=== PATIENT | female | born 1950 | race Caucasian/White ===

== ENCOUNTER 2024-12-19 12:23 | Outpatient (CLI) | payer OTHER, SELFPAY ==
--- OUTSIDE RECORDS SUMMARY | 2024-12-12 14:40 | XMS_ITS | Encounter Summary ---
Author Organization Healthcare Address [address] [place] [address] Care Team Providers Care Cath Lab Nurse Name Role Phone Hiram Love MD Primary Care Provider [phone] Reason for Referral * Consultation (Routine) - Authorized Specialty Diagnoses / Procedures Referred By Contac t Referred To Contact Diagnoses ANCA-associated vasculitis Ricki Adams MD [address] [place] [address] Phone: tel: fax: Referral ID Status Reason Start Date Expiration Date V isits Requested Visits Authorized [id number] Authorized 12/12/2024 06/13/2026 1 1 Encounter Details Date Type Department Care Team (Late st Contact Info) Description 12/12/2024 2:40 PM EST Office Visit [facility] Nephrology, Bone & Mineral Metabolism [address] [facility] [address] [facility] [address] [facility], [address] [place] [address] Ricki Adams MD [address] [place] [id number] ANCA-associated vasculitis (Primary Dx); CKD stage 3b, GFR 30-44 ml/min (CMS/HCC); Vasculitis (CMS/HCC); Immunosuppression due to drug therapy; Long-term use of high-risk medication; Anemia of renal disease Social History Tobacco Use Types Packs/Day Years Used Date Smoking Tobacco: Never Passive Smoke Exposure: Never Smokeless Tobacco: Never Alcohol Use Standard Drinks/Week Comments Never 0 (1 standard drink = 0.6 oz pur e alcohol) Humiliation, Afraid, Rape, and Kick questionnair e Answer Date Recorded Within the last year, have y ou been afraid of your partner or ex-partner? No 04/22/2024 Within the last year, have y ou been humiliated or emotionally abused in other ways by your partner or ex-partner? No Within the last year, have y ou been kicked, hit, slapped, or otherwise physically hurt by your partner or ex-partner? No 04/22/2024 Within the last year, have y ou been raped or forced to have any kind of sexual activity by your partner or ex-partner? No 04/22/2024 Social Connection and Isolation Panel Answer Date Recorded Frequency of Communication with Friends and Fami ly Not on file 04/22/2024 Frequency of Social Gatherings with Friends and Family Not on file 04/22/2024 Attends Mosque Services Not on file 04/22 Active Member of Clubs or Organizations Not on f ile 04/22/2024 Attends Club or Organization Meetings Not on lucio e 04/22/2024 Are you , , di vorced, , never , or living with a partner? 04/22/2024 Overall Financial Resource Strain (CARDIA) Answe r Date Recorded How hard is it for you to pa y for the very basics like food, housing, medical care, and heating? Not very hard 04/22/2024 PHQ-2 Answer Date Recorded Patient Health Questionnaire-2 Score 0 08/07/2024 Hunger Vital Sign Answer Date Recorded Within the past 12 months, y ou worried that your food would run out before you got the money to buy more. Never true 04/23/19 25 Within the past 12 months, t he food you bought just didn't last and you didn't have money to get more. Never true 04/22/2024 PRAPARE - Transportation Answer Date Re corded In the past 12 months, has l ack of transportation kept you from medical appointments or from getting medications? No 04/06 In the past 12 months, has l ack of transportation kept you from meetings, work, or from getting things needed for daily living? No 04/22/2024 PHQ-9 Answer Date Recorded Patient Health Questionnaire-9 Score 3 06/27/2024 Housing Stability Vital Sign Answer Jacob e Recorded In the last 12 months, was t here a time when you were not able to pay the mortgage or rent on time? No 04/22/2024 In the past 12 months, how m any times have you moved where you were living? 0 04/22/2024 At any time in the past 12 m [facility], were you homeless or living in a long term (including now)? No 04/22/2024 AUDIT-C Answer Date Recorded Q1: How often do you have a drink containing alcohol? Never 08/07/2024 Q2: How many drinks containi ng alcohol do you have on a typical day when you are drinking? Patient does not drink Q3: How often do you have si x or more drinks on one occasion? Never 08/07/2024 Utilities Answer Date Recorded In the past 12 months has th e electric, gas, oil, or water company threatened to shut off services in your home? No 04/22/2024 Comments Unknown Sex and Gender Information Value Date Recorded Sex Assigned at Not on file Legal Sex Female 6:34 PM EDT Gender Identity Not on file Sexual Orientation Not on file documented as of this encounter Last Filed Vital Signs Vital Sign Reading Time Taken Comments Blood Pressure 176/95 12/12/2024 3:04 PM EST Pulse 77 12/12/2024 3:04 PM EST Temperature 36.7 C (98 F) 12/12/2024 3:04 PM EST Respiratory Rate - - Oxygen Saturation 99% 12/12/2024 3:04 PM EST Inhaled Oxygen Concentration - - Weight 51.5 kg (113 lb 8.6 oz) 12/12/2024 3:04 P M EST Height 149.9 cm (4' 11 ) 12/12/2024 3:04 PM EST Body Mass Index 22.93 12/12/2024 3:04 PM EST documented in this encounter Miscellaneous Notes * Progress Notes - Ricki Adams MD - 12/12/2024 2:40 PM EST Nephrology Patient: Alyse Swift Chief complain / Reason for visit : Follow-up for kidney dysfunction. HPI: 74 y.o. female with history of ANCA vasculitis Patient was admitted to from 04/19/24 for hemoptysis and PAUL peak creatinine 5.94 on 04/19. Found to have UPCR 1.9 and 1 gram of protein in 24 hour urine, she was C-ANCA >1:1280+, PR3 1007. Rheumatology and Nephrology decided on Rituxivas protocol Cyclophosphamide x 2 + Rituximab 375 mg/m^2 x 4for induction. 04/25 -- 1st Cyclophosphamide + 1st dose of Rituximab 05/02 -- 2nd Rituximab 05/09 -- 2nd Cyclophosphamide + 3rd Rituximab 05/29 -- 4th Rituximab Today: No infections. Having Hair loss since starting Avacopan, otherwise has returned to work and feels great. BP better controlled at home 132/82, 123/74, 146/84, 156/79, 120/71 ROS: ROS was obtained in 14 points and is negative except otherwise as noted in the HPI. History: Past Medical History[1] Allergies[2] Medications: Home Medications: Current Medications[3] Physical Exam: Visit Vitals OB Status Unknown Smoking Status Never Gen: Awake, alert, NAD CV: Audible S1, S2, No thrills appreciated Pulm: Reduced breath sounds, Normal respiratory effort Abd: Soft, non-tender, No organomegaly appreciated Extremities: Edema, no digital clubbing Skin: No rashes noted on observed skin, warm to touch Neuro: Awake and alert. Non focal. Laboratory: Creatinine, Plasma (mg/dL) Date/Time Value 09/26/2024 1304 1.68 (H) 08/14/2024 1305 1.81 (H) 07/18/2024 1528 1.67 (H) eGFRcr (mL/min/1.73m*2) Date/Time Value 09/26/2024 1304 31.8 08/14/2024 1305 29.2 07/18/2024 1528 32.2 BUN, Plasma (mg/dL) Date/Time Value 09/26/2024 1304 19 08/14/2024 1305 20 07/18/2024 1528 30 (H) Albumin, Plasma (g/dL) Date/Time Value 09/26/2024 1304 3.8 08/14/2024 1305 3.7 07/18/2024 1528 3.8 Potassium, Plasma (mmol/L) Date/Time Value 09/26/2024 1304 4.6 08/14/2024 1305 4.6 07/18/2024 1528 4.3 CO2, Plasma (mmol/L) Date/Time Value 09/26/2024 1304 25 08/14/2024 1305 26 07/18/2024 1528 28 Sodium, Plasma (mmol/L) Date/Time Value 09/26/2024 1304 141 08/14/2024 1305 143 Total Calcium, Plasma (mg/dL) Date/Time Value 09/26/2024 1304 9.0 08/14/2024 1305 8.5 (L) 07/18/2024 1528 8.4 (L) Ionized Calcium, Serum (mg/dL) Date/Time Value 05/06/2024 0413 4.7 04/19/2024 2309 4.5 (L) Phosphorus, Plasma (mg/dL) Date/Time Value 09/26/2024 1304 4.5 08/14/2024 1305 4.2 07/18/2024 1528 4.3 Magnesium, Plasma (mg/dL) Date/Time Value 06/10/2024 1109 1.9 06/08/2024 0426 2.5 (H) 06/07/2024 0339 1.7 (L) WBC Count (10*3/uL) Date/Time Value 09/26/2024 1304 6.79 08/14/2024 1305 5.71 07/18/2024 1528 13.55 (H) HGB (g/dL) Date/Time Value 09/26/2024 1304 10.4 (L) 08/14/2024 1305 9.0 (L) 07/18/2024 1528 8.8 (L) Platelet Count (10*3/uL) Date/Time Value 09/26/2024 1304 331 08/14/2024 1305 263 07/18/2024 1528 275 Vitamin D 25 Hydroxy (ng/mL) Date/Time Value 09/26/2024 1304 60.5 07/18/2024 1528 44.6 PTH Intact Total (pg/mL) Date/Time Value 09/26/2024 1304 90 (H) 07/18/2024 1551 235 (H) 05/06/2024 0413 185 (H) Protein/Creatinine Ratio (mg/mg Creat) Date/Time Value 09/26/2024 1321 1.2 08/14/2024 1319 1.8 07/18/2024 1546 1.6 RBC, Urine (/HPF) Date/Time Value 08/14/2024 1319 16 - 30 (A) 07/18/2024 1546 4 - 10 (A) 04/19/2024 2317 >50 (A) WBC, Urine (/HPF) Date/Time Value 08/14/2024 1319 0 - 5 07/18/2024 1546 0 - 5 04/19/2024 2317 6 - 10 (A) Transferrin Saturation (%) Date/Time Value 06/27/2024 0927 10 (L) 05/23/2024 0453 30 Impression & Plan: 74 y.o. female with ANCA vasculitis presented in April 2024 with hemoptysis + PAUL peak cr 5.9. No kidney biopsy; serolgyy at diagnosis >1:1280 C-ANCA, >1000 Pr3 Treated with Rituxivas induction rituximab 375mg/m^2 x 4 doses + Cyclophosphamide x 2 doses + Glucocorticoids. 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 # Renal function, Acid-base and volume status reviewed # Notes from other services reviewed # Maintain optimum hydration. Avoid dehydration. # Avoid all the potential nephrotoxins, NSAID's. # Status of kidney disease is not at goal # Plan of care: Medication changes per orders. # Monitoring for drug toxicity: Hyperkalemia # Renally dose medications for the patients eGFR < 45 RTC : 2-3 months I confirm that this patient's longitudinal complex and multifaceted active and chronic health related conditions requires ongoing care by me or my other team members are addressed. I have personally managed this patients immunosuppression which includes Rituximab infusions and Avacopan. Close monitoring for side effects in particular infections and leukopenia. Reviewed CBC and WBC is normal. Willcontinue to need close monitoring. ENCOUNTER TIMING: I personally spent a total of 40 minutes on this encounter. This time includes face to face with patient, counseling and discussion, lab/result interpretation,medication review, coordination of follow-up care with new lab orders, document review and documentation. [1] Past Medical History: Diagnosis Date PAUL (acute kidney injury) ([facility]) 07/18/24 Vascular abnormality of conjunctiva [2] No Known Allergies [3] Current Outpatient Medications: atorvastatin (Lipitor) 40 MG tablet, Take 1 tablet by mouth nightly., Disp: , Rfl: Avacopan (Tavneos) 10 MG capsule, Take 3 capsules by mouth 2 times a day., Disp: 540 capsule, Rfl: 3 Calcium Carbonate-Vit D-Min (Caltrate Bone Health Advanced) 600-800 MG-UNIT tablet, Take 600-800 mg/day by mouth daily. Take I tablet by mouth daily., Disp: 30 tablet, Rfl: 3 carvedilol (Coreg) 12.5 MG tablet, Take 1.5 tablets by mouth 2 times a day., Disp: 270 tablet, Rfl:3 cholecalciferol (D3-5) 5,000 Units tablet, Take 0.5 tablets by mouth daily., Disp: 90 tablet, Rfl: 1 cyanocobalamin 2000 MCG tablet, Take 1 tablet by mouth daily., Disp: , Rfl: ferrous sulfate 325 (65 Fe) MG EC tablet, Take 1 tablet by mouth daily with breakfast. Do not crush, chew, or split., Disp: , Rfl: mirtazapine (Remeron) 15 MG tablet, Take 1 tablet by mouth nightly., Disp: 30 tablet, Rfl: 0 torsemide (Demadex) 20 MG tablet, Take 1 tablet by mouth daily as needed (for fluid gain)., Disp: ,Rfl: documented in this encounter Plan of Treatment Upcoming Encounters Date Type Department Care Team (Late st Contact Info) Description 03/12/2025 9:00 AM EST Office Visit [facility] Medicine Specialties [address], [address] [place] [address] Jesús Rowland, MB [address] [place] [address] 03/13/2025 1:40 PM EST Office Visit [facility] Nephrology, Bone & Mineral Metabolism [address] [facility], [address] [place] [address] Miguel Han MD [address] [address] [facility] [address] [facility] [address] [place] [address] Scheduled Orders Name Type Priority Associated Diagnoses Orde r Schedule Renal Function Panel, Plasma Lab Routine ANCA-associated vasculitis Expected: 12/12/2024 (Approximate), Expires: 06/15/2026 CBC W/O Differential Lab Routine ANCA-associated vasculitis CKD stage 3b, GFR 30-44 ml/min (CMS/HCC) Expected: 03/12/2025 (Approximate), Expires: 06/15/2026 Urinalysis with reflex microscopic (Culture NOT Included) Lab Routine ANCA-associated vasculitis CKD stage 3b, GFR 30-44 ml/min (CMS/HCC) Expected: 03/12/2025 (Approximate), Expires: 06/15/2026 Vitamin D 25 Hydroxy Lab Routine ANCA-associated vasculitis CKD stage 3b, GFR 30-44 ml/min (CMS/HCC) Expected: 03/12/2025 (Approximate), Expires: 06/15/2026 PTH Intact Total Lab Routine ANCA-associated vasculitis CKD stage 3b, GFR 30-44 ml/min (CMS/HCC) Expected: 03/12/2025 (Approximate), Expires: 06/15/2026 Albumin-creatinine ratio, urine, random Lab Routine ANCA-associated vasculitis CKD stage 3b, GFR 30-44 ml/min ([facility]/HCC) Expected: 03/12/2025 (Approximate), Expires: 06/15/2026 Protein, Random, Urine with Creatinine Lab Routine ANCA-associated vasculitis CKD stage 3b, GFR 30-44 ml/min (CMS/HCC) Expected: 03/12/2025 (Approximate), Expires: 06/15/2026 Renal Function Panel, Plasma Lab Routine ANCA-associated vasculitis CKD stage 3b, GFR 30-44 ml/min (CMS/HCC) Expected: 03/12/2025 (Approximate), Expires: 06/15/2026 Scheduled Referrals Name Type Priority Associated Diagnoses Order Schedule Follow Up Nephrology Outpatient Referral Routine ANCA-associated vasculitis Expected: 03/14/2025 (Approximate), Expires: 06/11/2026 documented as of this encounter Visit Diagnoses Diagnosis ANCA-associated vasculitis- Primary Other specified disorders of arteries and arterioles CKD stage 3b, GFR 30-44 ml/min (CMS/HCC) Vasculitis (CMS/[facility]) Unspecified arteritis Immunosuppression due to drug therapy Long-term use of high-risk medication Anemia of renal disease Anemia in chronic kidney disease documented in this encounter Additional Health Concerns Assessment Noted Time PHQ-9 Depression Total Score: 3 06/28/19 8:16 AM EDT A fall risk assessment has been complete d for the patient 12/12/2024 3:17 PM EST A Body Mass Index follow-up plan has been documented for the patient 12/13/2024 10:05 AM EST documented as of this encounter Care Teams Cath Lab Nurse Relationship Specialty Start Date End Date Hiram Love MD [address] [place] [address] PCP - General 04/19/24 documented as of this encounter
--- OUTSIDE RECORDS SUMMARY | 2024-12-19 12:29 | XMS_ITS | Encounter Summary ---
Author Organization Healthcare Address [address] [place] [address] Care Team Providers Care Broach Trouble Shooter Name Role Phone Hiram Love MD Primary Care Provider [phone] Encounter Details Date Type Department Care Team (Late st Contact Info) Description 04/29/2024 Lab Requisition [facility] [address] [place] [address] Luke Lechuga MD [address] [facility] [address] [place] [address] Encounter for general adult medical examination without abnormal findings Social History Tobacco Use Types Packs/Day Years Used Date Smoking Tobacco: Never Assessed Humiliation, Afraid, Rape, and Kick questionnair e [...] and Family Not on file 04/22/2024 Attends Denominational Services Not on file 04/22 Active Member [...] Date Recorded Patient Health Questionnaire-2 Score 0 04/22/2024 Hunger Vital Sign Answer Date Recorded Within [...] Answer Date Recorded Patient Health Questionnaire-9 Score 2 04/22/2024 Housing Stability Vital Sign Answer Jacob e Recorded In the last 12 months, was t here a time when you were not able to pay the mortgage or rent on time? No 04/22/2024 In the past 12 months, how m any times have you moved where you were living? 0 04/22/2024 At any time in the past 12 m [facility], were you homeless or living in a custodial (including now)? No 04/22/2024 Utilities Answer Date Recorded In the past [...] on file documented as of this encounter Functional Status * Calculated C-SSRS Risk Score (Lifetime/Recent) Answer Date of Assessment Author No Risk Indicated 05/02/2024 8:00 AM EDT Sera Kelly * Question Answer Date of Assessment Author 1. Wish to be (Past 1 Month) No 025 8:00 AM EDT Sera Kelly 2. Non-Specific Active Suici don Thoughts (Past 1 Month) No 05/02/2024 8:00 AM EDT Penny Kelly sa 6. Suicidal Behavior (Lifetime) No 8:00 AM EDT Sera Kelly documented as of this encounter Plan of Treatment Upcoming Encounters Date Type Department Care Team (Late st Contact Info) Description 03/12/2025 9:00 AM EST Office Visit [facility] Medicine Specialties [address] [place] [address] Jesús Rowland, LINDSAY [address] [place] [phone] 03/13/2025 1:40 PM EST Office Visit [facility] Nephrology, Bone & Mineral Metabolism [address] [facility], [address] [place] [address] Miguel Han MD [address] [place] [address] documented as of this encounter Procedures Procedure Name Priority Date/Time Associated Diagnosis Comments MULTI DRUG RESISTANCE TEST Routine 04/29/2024 8:20 AM EDT Encounter for general adult medical examination without abnormal findings documented in this encounter Results * Multi Drug Resistance Test (04/29/2024 8:20 AM EDT) Culture No growth at day 1 04/30/2024 10:54 AM EDT [facility] Swab (Nares and Brii Rectal) 04/29/2024 8:20 AM EDT 04/29/2024 1:02 PM EDT us Luke Lechuga MD LAB MICROBIOLOGY - GEN ERAL ORDERABLES Final Result [facility] [address] [place] [address] documented in this encounter Visit Diagnoses Diagnosis Encounter for general adult medical examination without abnormal findings documented in this encounter Additional Health Concerns Infection Onset Date Last Indicated Resolved Time Tuberculosis Rule-Out Comment:Per Kavon Mendoza APRN, active TB has been ruled out for this patient. 04/25/2024 04/25/2024 04/30/2024 9:40 AM E DT Assessment Noted Time PHQ-9 Depression Total Score: 2 04/23/19 6:00 PM EDT A Body Mass Index follow-up plan has been documented for the patient 06/10/2024 1:56 PM EDT documented as of this encounter Care Teams Broach Trouble Shooter Relationship Specialty Start Date End Date Hiram Love MD [address] [place] [address] PCP - General 04/19/24 documented as of this encounter
--- OUTSIDE RECORDS SUMMARY | 2024-12-19 12:29 | XMS_ITS | Clinical Summary ---
Author Organization [facility] Address [address] [place] [address] Care Team Providers Care Class A Lineman Name Role Phone Hiram Love MD Primary Care Provider [phone] Allergies No known active allergies Medications atorvastatin (Lipitor) 40 MG tablet Take 1 tablet by mouth nightly. 06/08/19 25 Active mirtazapine (Remeron) 15 MG tablet Take 1 tablet by mouth nightly. 30 tablet 06/08/19 25 Active Additional Information Patient not taking.Reported on 12/12/2024 cholecalciferol (D3-5) 5,000 Units tabletIndications:Bila teral lower extremity edema,Anemia in stage 3a chronic kidney disease,Vasculitis (CMS/HCC) Take 0.5 tablets by mouth daily. 90 tablet 1 06/28/19 25 Active Calcium Carbonate-Vit D-Min (Caltrate Bone Health Advanced) 600-800 MG-UNIT tablet Take 600-800 mg/day by mouth daily. Take I tablet by mouth daily. 30 tablet 3 06/29/19 25 Active torsemide (Demadex) 20 MG tabletIndications:Vasc ulitis (CMS/HCC),PAUL (acute kidney injury),Chronic kidney disease, stage IV (severe) (CMS/HCC),Immunosuppre ssion due to drug therapy,Anemia of renal disease,Secondary hyperparathyroidism of renal origin (CMS/HCC),Long-term use of high-risk medication,Bilateral lower extremity edema Take 1 tablet by mouth daily as needed (for fluid gain). 07/19/19 25 Active cyanocobalamin 2000 MCG tablet Take 1 tablet by mouth daily. Active ferrous sulfate 325 (65 Fe) MG EC tablet Take 1 tablet by mouth daily with breakfast. Do not crush, chew, or split. Active Avacopan (Tavneos) 10 MG capsule Take 3 capsules by mouth 2 times a day. 540 capsule 3 10/04/19 25 Active carvedilol (Coreg) 12.5 MG tablet Take 1.5 tablets by mouth 2 times a day. 270 tablet 3 10/17/19 25 Active Active Problems Problem Noted Date Diagnosed Date CKD stage 3b, GFR 30-44 ml/min 12/13/2024 Granulomatosis with polyangiitis 08/26/2024 Chronic kidney disease, stage IV (severe) 2024 Secondary hyperparathyroidism of renal origin Long-term use of high-risk medication 07/18/2024 Iron deficiency anemia secon delilah to inadequate dietary iron intake 07/05/2024 ANCA-associated vasculitis 06/27/2024 Immunosuppression due to drug therapy 06/27/2024 Metabolic acidosis 06/27/2024 Hyperkalemia 06/27/2024 Anemia of renal disease 06/27/2024 Bilateral lower extremity edema 06/27/2024 Recurrent and persistent hem aturia with other morphologic changes 06/27/2024 Other proteinuria 06/27/2024 Vasculitis 05/28/2024 Hemoptysis 04/19/2024 Resolved Problems Problem Noted Date Diagnosed Date Resolved Date PAUL (acute kidney injury) 07/18/2024 Encounters Date Type Department Care Team Description 12/19/2024 Orders Only [facility] Nephrology, Bone & Mineral Metabolism [address], [address] [place] [address] Genoveva Palacios, PharmD ANCA-associated vasculitis (Primary Dx); CKD stage 3b, GFR 30-44 ml/min ([facility]) 12/12/2024 2:40 PM EST Office Visit [facility] Nephrology, Bone & Mineral Metabolism [address], [address] [place] [address] Ricki Adams MD ANCA-associated vasculitis (Primary Dx); CKD stage 3b, GFR 30-44 ml/min ([facility]); Vasculitis ([facility]); Immunosuppression due to drug therapy; Long-term use of high-risk medication; Anemia of renal disease 12/12/2024 Travel 12/11/2024 Travel 12/02/2024 Telephone [facility] Nephrology, Bone & Mineral Metabolism [address], [address] [place] [address] Miguel Han MD [facility] - Patient Message 10/16/2024 Orders Only [facility] Nephrology, Bone & Mineral Metabolism [address], [address] [place] [address] Genoveva Palacios, PharmD 10/15/2024 Orders Only [facility] Nephrology, Bone & Mineral Metabolism [address] [place] [address] Genoveva Palacios, PharmD Chronic kidney disease, stage IV (severe) ([facility]) (Primary Dx); ANCA-associated vasculitis 10/03/2024 12:20 PM EDT Office Visit [facility] Nephrology, Bone & Mineral Metabolism [address] [place] [address] Miguel Han MD Chronic kidney disease, stage IV (severe) ([facility]) (Primary Dx); ANCA-associated vasculitis; Immunosuppression due to drug therapy ([facility]); Anemia of renal disease; Secondary hyperparathyroidism of renal origin ([facility]) 10/03/2024 Travel 10/02/2024 Orders Only [facility] Medicine Specialties [address], [address] [place] [address] Provider, Historical 09/26/2024 Travel from Last 3 Months Social History Tobacco Use Types Packs/Day Years Used Date Smoking Tobacco: Never Passive Smoke Exposure: Never Smokeless Tobacco: Never Tobacco Cessation:Counseling Given: Not Answered Alcohol Use Standard Drinks/Week Comments Never 0 [...] and Family Not on file 04/22/2024 Attends [employer] Not on file 04/22 Active Member [...] any time in the past 12 m [facility], were you homeless or living in a [...] Recorded In the past 12 months has [employer], gas, oil, or water company threatened to shut off services in your home? No 04/22/2024 Comments Unknown Sex and Gender Information Value Date Recorded Sex Assigned at Not on file Legal Sex Female 6:34 PM EDT Gender Identity Not on file Sexual Orientation Not on file Last Filed Vital Signs Vital Sign Reading Time Taken Comments Blood Pressure 176/95 12/12/2024 3:04 PM EST Pulse 77 12/12/2024 3:04 PM EST Temperature 36.7 C (98 F) 12/12/2024 3:04 PM EST Respiratory Rate 16 08/15/2024 2:44 PM EDT Oxygen Saturation 99% 12/12/2024 3:04 PM EST Inhaled Oxygen Concentration - - Weight 51.5 kg (113 lb 8.6 oz) 12/12/2024 3:04 P M EST Height 149.9 cm (4' 11 ) 12/12/2024 3:04 PM EST Body Mass Index 22.93 12/12/2024 3:04 PM EST Plan of Treatment Upcoming Encounters Date Type Department Care Team (Late st Contact Info) Description 03/12/2025 9:00 AM EST [facility] [address] [place] [address] Jesús Rowland, LINDSAY [address] [place] [address] 03/13/2025 1:40 PM EST Office Visit [facility] Nephrology, Bone & Mineral Metabolism [address], [address] [place] [address] Miguel Han MD [address] [place] [address] Health Maintenance Due Date Last Done Comments [facility]-Bone Density Scan 1950 [facility]-Infant/Child/Adol SDOH Screenings 1950 [id number] Vaccine (#1) 09/21/1955 Diabetes: Dental Exam 1960 [facility]-DTaP,Tdap,and Td Vaccine s (1 - Tdap) 1969 [facility]-Hepatitis A Vaccines (1 of 2 - Risk 2-dose series) 1969 [facility]-Pneumococcal Vaccine: 50 + Years (1 of 2 - PCV) 1969 [facility]-Zoster Vaccines (1 of 2) 1969 CT Colonography 09/21/1995 Colonoscopy 09/21/1995 FIT-DNA 09/21/1995 FIT 09/21/1995 FOBT 09/21/1995 Sigmoidoscopy 09/21/1995 [facility]-Colorectal Cancer Screening 09/21/1995 [facility]-Breast Cancer Screening 2000 [facility]-RSV Vaccine: 60+ Years o r (1 - Risk 60-74 years 1-dose series) 2010 [facility]-Influenza Vaccine (#1) 2024 [facility]-Diabetes: Hemoglobin A1C 10/17/2024 04/19/2024 [facility]- SDOH Screenings 10/23/2024 [facility]-Adult SDOH Screenings 10/23/2024 04/22/2024 [facility]-Depression Screening 08/07/2025 025, 06/27/2024 [facility]-Hepatitis C Screening Completed 2024, 04/21/2024, 04/19/2024 HPV Vaccines Aged Out No longer eligi ble based on patient's age to complete this topic [facility]-HIB Vaccines Aged Out No longer e ligible based on patient's age to complete this topic [facility]-IPV Vaccines Aged Out No longer e ligible based on patient's age to complete this topic [facility]-Rotavirus Vaccines Aged Out No lo nger eligible based on patient's age to complete this topic Procedures Procedure Name Priority Date/Time Associated Diagnosis Comments URINALYSIS MICROSCOPIC FOR UA REFLEX Routine 12/12/2024 3:58 PM EST Chronic kidney disease, stage IV (severe) (CMS/HCC) 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 Anemia of renal disease Secondary hyperparathyroidism of renal origin (CMS/HCC) URINALYSIS WITH REFLEX MICROSCOPIC Routine 12/12/2024 3:58 PM EST Chronic kidney disease, stage IV (severe) (CMS/HCC) 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 Anemia of renal disease Secondary hyperparathyroidism of renal origin (CMS/HCC) PROTEIN, URINE, RANDOM WITH CREATININE Routine 12/12/2024 3:58 PM EST Chronic kidney disease, stage IV (severe) (CMS/HCC) 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 Anemia of renal disease Secondary hyperparathyroidism of renal origin (CMS/HCC) PHOSPHORUS, PLASMA Routine 12/12/2024 3: 53 PM EST Chronic kidney disease, stage IV (severe) (CMS/HCC) 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 Anemia of renal disease Secondary hyperparathyroidism of renal origin (CMS/HCC) BASIC METABOLIC PANEL, PLASMA Routine 12/12/2024 3:53 PM EST Chronic kidney disease, stage IV (severe) (CMS/HCC) 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 Anemia of renal disease Secondary hyperparathyroidism of renal origin (CMS/HCC) CBC WITH AUTO DIFFERENTIAL Routine 12/12/2024 3:53 PM EST Chronic kidney disease, stage IV (severe) (CMS/HCC) 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 Anemia of renal disease Secondary hyperparathyroidism of renal origin (CMS/HCC) SERINE PROTEINASE 3 (PR3) ANTIBODY (SO) Routine 12/12/2024 3:53 PM EST Chronic kidney disease, stage IV (severe) (CMS/HCC) 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 Anemia of renal disease Secondary hyperparathyroidism of renal origin (CMS/HCC) HEPATIC FUNCTION PANEL Routine 12/12/2024 3:53 PM EST Chronic kidney disease, stage IV (severe) ([facility]) ANCA-associated vasculitis COMPLETE METABOLIC PROFILE (CMP) Routine 10/02/2024 11:48 AM EDT ALBUMIN, URINE, RANDOM Routine 09/26/2024 1:21 PM EDT Immunosuppression due to drug therapy ([facility]) ANCA-associated vasculitis URINALYSIS WITH REFLEX MICROSCOPIC Routine 09/26/2024 1:21 PM EDT Immunosuppression due to drug therapy ([facility]) ANCA-associated vasculitis PROTEIN, URINE, RANDOM WITH CREATININE Routine 09/26/2024 1:21 PM EDT Immunosuppression due to drug therapy ([facility]) ANCA-associated vasculitis RENAL FUNCTION PANEL, PLASMA Routine 09/26/2024 1:04 PM EDT Immunosuppression due to drug therapy ([facility]) ANCA-associated vasculitis PTH INTACT TOTAL Routine 09/26/2024 1:04 PM EDT Immunosuppression due to drug therapy ([facility]) ANCA-associated vasculitis VITAMIN D 25 HYDROXY Routine 09/26/2024 1:04 PM EDT Immunosuppression due to drug therapy ([facility]) ANCA-associated vasculitis CYSTATIN C Routine 09/26/2024 1:04 PM EDT Immunosuppression due to drug therapy ([facility]) ANCA-associated vasculitis CBC WITH AUTO DIFFERENTIAL Routine 09/26/2024 1:04 PM EDT Immunosuppression due to drug therapy ([facility]) ANCA-associated vasculitis ACUTE HEPATITIS PANEL Routine 04/22/2024 11:28 AM EDT HEMOGLOBIN A1C Routine 04/19/2024 11:09 PM EDT from Last 3 Months or Most Recently Relevant to Health Maintenance Results * Urinalysis Microscopic Examination (12/12/2024 3:58 PM EST) Urine Urine specimen obtained by clean catch procedure / Unknown Non-blood Collection / Unknown 12/12/2024 3:58 PM EST 12/12/2024 3:58 PM EST us Miguel Han MD LAB URINE ORDERABLES Final Resul t Performing Organization Address [facility] Phone Number [facility] [address] [place] [address] * Protein, Random, Urine with Creatinine (12/12/2024 3:58 PM EST) Only the most recent of2 resultswithin the time period is included. Protein, Urine 49 mg/dL 12/12/2024 5:44 PM EST [facility] Creatinine, Urine 31 mg/dL 12/12/2024 5:44 PM EST [facility] Protein/Creati nine Ratio 1.6 mg/mg Creat 12/12/2024 5:44 PM EST [facility] Urine Urine specimen obtained by clean catch procedure / Unknown Non-blood Collection / Unknown 12/12/2024 3:58 PM EST 12/12/2024 3:58 PM EST us Miguel Han MD LAB URINE ORDERABLES Final Resul t Performing Organization Address [facility] Phone Number [facility] [address] [place] [address] * (ABNORMAL) Urinalysis with reflex microscopic (Culture NOT Included) (12/12/2024 3:58 PM EST) Only the most recent of2 resultswithin the time period is included. Color, Urine Yellow LAB URINALYSIS - AUTOMATED METHOD 12/12/2024 5:58 PM EST [facility] Clarity, Urine Clear LAB URINALYSIS - AUTOMATED METHOD 12/12/2024 5:58 PM EST [facility] Spec [place], Urine 1.008 1.005 - 1.030 LAB URINALYSIS - AUTOMATED METHOD 12/12/2024 5:58 PM EST [facility] pH, Urine 6.5 5.0 - 8.0 LAB URINALYSIS - AUTOMATED METHOD 12/12/2024 5:58 PM EST [facility] Protein, Urine 100(A) Negative mg/dL LAB URINALYSIS - AUTOMATED METHOD 12/12/2024 5:58 PM EST [facility] Glucose, Urine Negative Negative mg/dL LAB URINALYSIS - AUTOMATED METHOD 12/12/2024 5:58 PM EST [facility] Ketones, Urine Negative Negative mg/dL LAB URINALYSIS - AUTOMATED METHOD 12/12/2024 5:58 PM EST [facility] Blood, Urine Small(A) Negative LAB URINALYSIS - AUTOMATED METHOD 12/12/2024 5:58 PM EST [facility] Bilirubin, Urine Negative Negative LAB URINALYSIS - AUTOMATED METHOD 12/12/2024 5:58 PM EST [facility] Urobilinogen, Urine 0.2 0.2 to 1.0 mg/dL LAB URINALYSIS - AUTOMATED METHOD 12/12/2024 5:58 PM EST [facility] Leukocytes, Urine Negative Negative LAB URINALYSIS - AUTOMATED METHOD 12/12/2024 5:58 PM EST [facility] Nitrite, Urine Negative Negative LAB URINALYSIS - AUTOMATED METHOD 12/12/2024 5:58 PM EST [facility] RBC, Urine 4 - 10(A) 0 to 3 /HPF 12/12/2024 5:58 PM EST [facility] Comment:This result was prev iously suppressed from the chart. WBC, Urine 0 - 5 0 to 5 /HPF 12/12/2024 5:58 PM EST [facility] Comment:This result was prev iously suppressed from the chart. Squamous Epithelial Cells 3 - 5 0 to 5 /HPF 12/12/2024 5:58 PM EST [facility] Comment:This result was prev iously suppressed from the chart. Hyaline Casts 0 - 2 0 to 5 /LPF 12/12/2024 5:58 PM EST [facility] Comment:This result was prev iously suppressed from the chart. Bacteria, Urine Negative Negative 12/12/2024 5:58 PM EST [facility] Comment:This result was prev iously suppressed from the chart. Urine Urine specimen obtained by clean catch procedure / Unknown Non-blood Collection / Unknown 12/12/2024 3:58 PM EST 12/12/2024 3:58 PM EST Narrative [facility] - 12/12/2024 5:58 PM EST Performed by manual method us Miguel Han MD LAB URINE ORDERABLES Final Resul t [facility] [address] [place] [address] * (ABNORMAL) Serine Protease 3 Antibody (12/12/2024 3:53 PM EST) Pathologist [facility] Serine Proteinase 3 (PR3) Ab, IgG 96(H) 0 - 19 AU/mL 12/15/2024 1:36 PM EST [facility] [facility] Blood Venous blood specimen / Unknown Venipuncture / Unknown 12/12/2024 3:53 PM EST 12/12/2024 3:53 PM EST Narrative [facility] ([employer]) - 12/15/2024 1:36 PM EST INTERPRETIVE INFORMATION: Serine Proteinase 3, IgG 19 AU/mL or Less ........ Negative 20-25 AU/mL ............. Equivocal 26 AU/mL or Greater ..... Positive Approximately 85% of patients with a C-ANCA pattern by IFA have antibodies specific for PR3. Performed By: [employer] [address] [place] [address] [employer]: Telly De La Paz MD, PhD CLIA Number: [id number] Miguel Han MD LAB BLOOD ORDERABLES Final Resul t Performing Organization Address [facility] Co de Phone Number [facility] [employer] ([employer] [address] [place] [address] * (ABNORMAL) CBC and Differential (12/12/2024 3:53 PM EST) Only the most recent of2 resultswithin the time period is included. Pathologist [facility] WBC Count 3.01(L) 3.70 - 10.30 10*3/uL LAB HEMATOLOGY METHOD 12/12/2024 6:27 PM EST [facility] RBC Count 3.17(L) 3.90 - 5.20 10*6/uL LAB HEMATOLOGY METHOD 12/12/2024 6:27 PM EST [facility] HGB 10.6(L) 11.2 - 15.7 g/dL LAB HEMATOLOGY METHOD 12/12/2024 6:27 PM EST [facility] HCT 33.1(L) 34.0 - 45.0 % LAB HEMATOLOGY METHOD 12/12/2024 6:27 PM EST [facility] Platelet Count 244 155 - 369 10*3/uL LAB HEMATOLOGY METHOD 12/12/2024 6:27 PM EST [facility] MCV 104(H) 79 - 98 fL LAB HEMATOLOGY METHOD 12/12/2024 6:27 PM EST [facility] MCH 33.4(H) 26.0 - 32.0 pg LAB HEMATOLOGY METHOD 12/12/2024 6:27 PM EST [facility] MCHC 32.0 30.7 - 35.5 g/dL LAB HEMATOLOGY METHOD 12/12/2024 6:27 PM EST [facility] RDW 12.8 11.5 - 14.5 % LAB HEMATOLOGY METHOD 12/12/2024 6:27 PM EST [facility] MPV 9.8 8.8 - 12.5 fL LAB HEMATOLOGY METHOD 12/12/2024 6:27 PM [facility] nRBC 0.0 <=0.0 per 100 WBCs LAB HEMATOLOGY METHOD 12/12/2024 6:27 PM [facility] Differential Type Automated LAB HEMATOLOGY METHOD 12/12/2024 6:27 PM [facility] Neutrophils % 41 % LAB HEMATOLOGY METHOD 12/12/2024 6:27 PM [facility] Lymphocytes % 28 % LAB HEMATOLOGY METHOD 12/12/2024 6:27 PM [facility] Monocytes % 26 % LAB HEMATOLOGY METHOD 12/12/2024 6:27 PM [facility] Eosinophils % 3 % LAB HEMATOLOGY METHOD 12/12/2024 6:27 PM [facility] Basophils % 2 % LAB HEMATOLOGY METHOD 12/12/2024 6:27 PM [facility] Immature Granulocytes % 0 % LAB HEMATOLOGY METHOD 12/12/2024 6:27 PM [facility] Neutrophils Absolute 1.25(L) 1.60 - 6.10 10*3/uL LAB HEMATOLOGY METHOD 12/12/2024 6:27 PM [facility] Lymphocytes Absolute 0.83(L) 1.20 - 3.90 10*3/uL LAB HEMATOLOGY METHOD 12/12/2024 6:27 PM [facility] Monocytes Absolute 0.77 0.30 - 0.90 10*3/uL LAB HEMATOLOGY METHOD 12/12/2024 6:27 PM [facility] Eosinophils Absolute 0.10 0.00 - 0.50 10*3/uL LAB HEMATOLOGY METHOD 12/12/2024 6:27 PM EST [facility] Basophils Absolute 0.05 0.00 - 0.10 10*3/uL LAB HEMATOLOGY METHOD 12/12/2024 6:27 PM [facility] Immature Granulocytes Absolute 0.01 0.00 - 0.06 10*3/uL LAB HEMATOLOGY METHOD 12/12/2024 6:27 PM EST [facility] Blood Venous blood specimen / Unknown Venipuncture / Unknown 12/12/2024 3:53 PM EST 12/12/2024 3:53 PM EST Narrative [facility] - 12/12/2024 6:27 PM EST Therapeutic decision making should be based on absolute values, rather than percentages. us Miguel Han MD LAB BLOOD ORDERABLES Final Resul t Performing Organization Address City/[facility] Co de Phone Number [facility] [address] [place] [address] * (ABNORMAL) Phosphorus, Plasma (12/12/2024 3:53 PM EST) Phosphorus, Plasma 4.8(H) 2.5 - 4.5 mg/dL 12/12/2024 6:00 PM EST [facility] Blood Venous blood specimen / Unknown Venipuncture / Unknown 12/12/2024 3:53 PM EST 12/12/2024 3:53 PM EST us Miguel Han MD LAB BLOOD ORDERABLES Final Resul t Performing Organization Address City/[facility]/ZIP Co de Phone Number [facility] [address] [place] [address] * (ABNORMAL) Hepatic function panel (12/12/2024 3:53 PM EST) Direct Bilirubin, Plasma <0.2 <=0.3 mg/dL 12/12/2024 6:00 PM EST [facility] Alkaline Phosphatase, Plasma 103 46 - 142 U/L 12/12/2024 6:00 PM EST [facility] Total Bilirubin, Plasma 0.3 0.2 - 1.1 mg/dL 12/12/2024 6:00 PM EST [facility] Albumin, Plasma 4.2 3.5 - 5.2 g/dL 12/12/2024 6:00 PM EST [facility] Total Protein 6.3 6.3 - 7.9 g/dL 12/12/2024 6:00 PM EST [facility] ALT, Plasma 8(L) 10 - 35 U/L 12/12/2024 6:00 PM EST [facility] AST, Plasma 21 10 - 35 U/L 12/12/2024 6:00 PM EST [facility] Blood Venous blood specimen / Unknown Venipuncture / Unknown 12/12/2024 3:53 PM EST 12/12/2024 3:53 PM EST us Miguel Han MD LAB BLOOD ORDERABLES Final Resul t [facility] [address] [place] [address] * (ABNORMAL) Basic Metabolic Panel, Plasma (12/12/2024 3:53 PM EST) Glucose, Plasma 71(L) 74 - 99 mg/dL 12/12/2024 6:00 PM EST [facility] BUN, Plasma 17 8 - 23 mg/dL 12/12/2024 6:00 PM [facility] Creatinine, Plasma 1.35(H) 0.60 - 1.10 mg/dL 12/12/2024 6:00 PM EST [facility] BUN/Creatinine Ratio 13 12/12/2024 6:00 PM EST [facility] Sodium, Plasma 142 136 - 145 mmol/L 12/12/2024 6:00 PM [facility] Potassium, Plasma 4.0 3.6 - 4.9 mmol/L 12/12/2024 6:00 PM [facility] Chloride, Plasma 109(H) 97 - 107 mmol/L 12/12/2024 6:00 PM EST [facility] CO2, Plasma 24 22 - 29 mmol/L 12/12/2024 6:00 PM EST [facility] Anion Gap 9 6 - 16 mmol/L 12/12/2024 6:00 PM EST [facility] Total Calcium, Plasma 8.7(L) 8.9 - 10.2 mg/dL 12/12/2024 6:00 PM EST [facility] eGFRcr 41.3 mL/min/1.7 3m*2 12/12/2024 6:00 PM EST [facility] Comment:Reported eGFRcr in m L/min/1.73m2 is based the CKD-EPI 2020 equation that does not use a race coefficient. Blood Venous blood specimen / Unknown Venipuncture / Unknown 12/12/2024 3:53 PM EST 12/12/2024 3:53 PM EST Miguel Han MD LAB BLOOD ORDERABLES Final Resul t [facility] [address] [place] [address] * COMPLETE METABOLIC PROFILE (CMP) (10/02/2024 11:48 AM EDT) [facility] Provider LAB BLOOD ORDERABLES Final R esult * (ABNORMAL) Albumin-creatinine ratio, urine, random (09/26/2024 1:21 PM EDT) Microalbumin, Urine 13.95(H) <1.9 mg/dL 09/26/2024 5:29 PM EDT [facility] Creatinine, Urine 17 mg/dL 09/26/2024 5:29 PM EDT [facility] Albumin/Creat inine Ratio 821(H) 0 - 30 mg/g creatinine 09/26/2024 5:29 PM EDT [facility] Urine Urine specimen obtained by clean catch procedure / Unknown Non-blood Collection / Unknown 09/26/2024 1:21 PM EDT 09/26/2024 1:21 PM EDT Miguel Han MD LAB URINE ORDERABLES Final Resul t Performing Organization Address City/[facility]/ZIP Co de Phone Number [facility] [address] [place] [address] * (ABNORMAL) Cystatin C (09/26/2024 1:04 PM EDT) Cystatin C 2.09(H) 0.61 - 0.95 mg/L 09/26/2024 5:03 PM EDT [facility] Blood Venous blood specimen / Unknown Venipuncture / Unknown 09/26/2024 1:04 PM EDT 09/26/2024 1:04 PM EDT Miguel Han MD LAB BLOOD ORDERABLES Final Resul t Performing Organization Address [facility] de Phone Number [facility] [address] [place] [address] * Vitamin D 25 Hydroxy (09/26/2024 1:04 PM EDT) Vitamin D 25 Hydroxy 60.5 20.0 - 80.0 ng/mL 09/26/2024 5:59 PM EDT [facility] Blood Venous blood specimen / Unknown Venipuncture / Unknown 09/26/2024 1:04 PM EDT 09/26/2024 1:04 PM EDT Narrative [facility] - 09/26/2024 5:59 PM EDT Testing performed on [employer] Procedure Analyst, standardized against NIST SRM 2972. When testing samples from patients whose predominant form of vitamin D is vitamin D2, such as patients receiving vitamin D2 supplementation, results that are subtherapeutic should be confirmed with another method, such as LC-MS/MS, before being used for patient management. Vitamin D, 25-Hydroxy reference range, age 18 years and up: Deficiency: <12 ng/mL Insufficiency: 12 to 19 ng/mL Sufficiency: 20 to 80 ng/mL Possible toxicity: >100 ng/mL Miguel Han MD LAB BLOOD ORDERABLES Final Resul t Performing Organization Address [facility] Co de Phone Number [facility] [address] [place] [address] * (ABNORMAL) PTH Intact Total (09/26/2024 1:04 PM EDT) PTH Intact Total 90(H) 9 - 77 pg/mL 09/26/2024 9:13 PM EDT [facility] Blood Venous blood specimen / Unknown Venipuncture / Unknown 09/26/2024 1:04 PM EDT 09/26/2024 1:04 PM EDT Narrative [facility] - 09/26/2024 9:13 PM EDT Assay performed by immunoassay at the [facility]. Performed on White Procedure Analyst chemiluminescent immunoassay, tractable to the World Health Organization's first international standard for PTH from the BS, Code 79/500. Results obtained from different test methods or kits cannot be used interchangeably. us Miguel Han MD LAB BLOOD ORDERABLES Final Resul t [facility] [address] [place] [address] * (ABNORMAL) Renal Function Panel, Plasma (09/26/2024 1:04 PM EDT) Glucose, Plasma 74 74 - 99 mg/dL 09/26/2024 5:03 PM EDT [facility] BUN, Plasma 19 8 - 23 mg/dL 09/26/2024 5:03 PM EDT [facility] Creatinine, Plasma 1.68(H) 0.60 - 1.10 mg/dL 09/26/2024 5:03 PM EDT [facility] BUN/Creatinine Ratio 11 09/26/2024 5:03 PM EDT [facility] Sodium, Plasma 141 136 - 145 mmol/L 09/26/2024 5:03 PM EDT [facility] Potassium, Plasma 4.6 3.6 - 4.9 mmol/L 09/26/2024 5:03 PM EDT [facility] Chloride, Plasma 103 97 - 107 mmol/L 09/26/2024 5:03 PM EDT [facility] CO2, Plasma 25 22 - 29 mmol/L 09/26/2024 5:03 PM EDT [facility] Anion Gap 13 6 - 16 mmol/L 09/26/2024 5:03 PM EDT [facility] Total Calcium, Plasma 9.0 8.9 - 10.2 mg/dL 09/26/2024 5:03 PM EDT [facility] Phosphorus, Plasma 4.5 2.5 - 4.5 mg/dL 09/26/2024 5:03 PM EDT [facility] Albumin, Plasma 3.8 3.5 - 5.2 g/dL 09/26/2024 5:03 PM EDT [facility] eGFRcr 31.8 mL/min/1.7 3m*2 09/26/2024 5:03 PM EDT [facility] Comment:Reported eGFRcr in m L/min/1.73m2 is based the CKD-EPI 2020 equation that does not use a race coefficient. Blood Venous blood specimen / Unknown Venipuncture / Unknown 09/26/2024 1:04 PM EDT 09/26/2024 1:04 PM EDT us Miguel Han MD LAB BLOOD ORDERABLES Final Resul t [facility] [address] [place] [address] * Hepatitis panel, acute (04/22/2024 11:28 AM EDT) Hepatitis B Surf Antigen Negative Negative 04/22/2024 1:02 PM EDT [facility] Hepatitis C Antibody Negative Negative 04/22/2024 1:02 PM EDT [facility] Hepatitis A Antibody IgM Negative Negative 04/22/2024 1:02 PM EDT [facility] Hepatitis B Core Antibody IgM Negative Negative 04/22/2024 1:02 PM EDT [facility] Blood Venous blood specimen / Unknown Venipuncture / Unknown 04/22/2024 11:28 AM EDT 04/22/2024 11:47 AM EDT us Yvette Arshad APRN, DNP LAB BLOOD ORDERABLE S Final Result [facility] [address] [place] [address] * (ABNORMAL) Hemoglobin A1c (04/19/2024 11:09 PM EDT) Hemoglobin A1c 5.7(H) <5.7 % 04/20/2024 2:13 AM EDT [facility] Blood Venous blood specimen / Unknown Venipuncture / Unknown 04/19/2024 11:09 PM EDT 04/19/2024 11:14 PM EDT Narrative [facility] - 04/20/2024 2:13 AM EDT HA1C Interpretive Data: Diagnosis of Diabetes: Diabetic > or = 6.5% Pre-diabetic 5.7 to 6.4% Non-diabetic < or = 5.6% Glycemic Targets for Type I and Type II Diabetics: Non- Adults <7.0% Adults <6.0% Children and Adolescents <7.5% Source: [place] [employer]. Standards of medical care in diabetes,2017. Diabetes Care.2017:40 (suppl 1):S1-S135. HbA1c assay performed by an ion-exchange chromatography method that is certified traceable to the DCCT. us Pratik Mayers MD LAB BLOOD ORDERABLES Final Resu lt [facility] [address] [place] [address] from Last 3 Months or Most Recently Relevant to Health [place] [address] [facility] Advance Directives * Full Code (Latest Code Status on File) Date Activated Date Inactivated Comments 04/19/2024 9:46 PM 06/10/2024 6:24 PM After discuss ion regarding the risks and benefits of available cardiopulmonary resuscitative measures (includes but not limited to CPR, medications, electric shocks, intubation, and mechanical ventilation) at this time patient has elected to remain FULL CODE. Betito Barros, PGY-1 Internal Medicine Pager: [phone] Signed: 04/19/2024 - 9:44 PM Care Teams Class A Lineman Relationship Specialty Start Date End Date Hiram Love MD [address] [place] [address] PCP - General 04/19/24
--- OUTSIDE RECORDS SUMMARY | 2024-12-19 12:29 | XMS_ITS | Encounter Summary ---
Author Organization [facility] Address [address] [place] [address] Care Team Providers Care Stapler Machine Name Role Phone Hiram Love MD Primary Care Provider [phone] Reason for Visit * Reason Onset Date Comments HCN - Patient Message 12/02/2024 Encounter Details Date Type Department Care Team ([facility] st Contact Info) Description 12/02/2024 Telephone [facility] Nephrology, Bone [facility] Mineral Metabolism [address], [address] [place] [address] Miguel Han MD [address] [place] [address] HCN - Patient Message Social History Tobacco Use Types Packs/Day Years [...] and Family Not on file 04/22/2024 Attends Religion Services Not on file 04/22 Active Member [...] any time in the past 12 m [facility], were you homeless or living in a snf (including now)? No 04/22/2024 AUDIT-C Answer Date [...] Recorded In the past 12 months has e [employer], [employer], oil, or water [employer] threatened to shut off services in your home? No 04/22/2024 Comments Unknown Sex and Gender Information Value Date Recorded Sex Assigned at Not on file Legal Sex Female 6:34 PM EDT Gender Identity Not on file Sexual Orientation Not on file documented as of this encounter Miscellaneous Notes * Telephone Encounter - Teena Su - 12/02/2024 10:48 AM EDT Clinical Concern/Question Reason for Call: Patient is returning missed call to the clinic Best contact number: [phone] Optimal time of day to reach caller: ANYTIME Additional comments/information from caller: Note: Please do not reply to this message. Follow-up communication and further actions as a result of this message need to be communicated with the patient directly, if the patient is not active on MyChart. If the patient is active on MyChart, they will receive notification of the communication/outcome via [employer]. documented in this encounter Plan of Treatment Upcoming Encounters Date Type Department Care Team (Late st Contact Info) Description 03/12/2025 9:00 AM EST Office Visit [facility] Medicine Specialties [address] [place] [address] Jesús Rowland, LINDSAY [address] [place], [place] [id number] 03/13/2025 1:40 PM EST Office Visit [facility], Bone [facility] Mineral Metabolism [address], [address] [place] [address] Miguel Han MD [address] [address] documented as of this encounter Visit Diagnoses Not on filedocumented in this encounter Additional Health Concerns Assessment Noted Time PHQ-9 Depression Total Score: 3 06/28/19 8:16 AM EDT A fall risk assessment has been complete d for the patient 10/03/2024 12:35 PM EDT A Body Mass Index follow-up plan has been documented for the patient 10/03/2024 1:37 PM EDT documented as of this encounter Care Teams Stapler Machine Relationship Specialty Start Date End Date Hiram Love MD [address] [place] [address] [place] [address] PCP - General 04/19/24 documented as of this encounter
--- OUTSIDE RECORDS SUMMARY | 2024-12-19 12:29 | XMS_ITS | Encounter Summary ---
Author Organization [employer] ([place], [place], [place], [place], [place]) Address [address] [place] [address] Care Team Providers Care Security Rover Name Role Phone Hiram Love MD Primary Care Provider [phone] Reason for Visit * Reason Onset Date Comments Medication Refill 03/11/2024 Encounter Details Date Type Department Care Team (Late st Contact Info) Description 03/11/2024 Telephone [facility] Orthopedics - [address] [address] Peterson Lopez PA-C [address] [place] [id number] Medication Refill Social History Tobacco Use Types Packs/Day Years Used Date Smoking Tobacco: Never Smokeless Tobacco: Never Alcohol Use Standard Drinks/Week Comments Never 0 (1 standard drink = 0.6 oz pur e alcohol) Family and Community Support Answer Jacob e Recorded Help with Day to Day Activities Not on file 02/23/2023 Feeling Lonely or Isolated Not on file 02/23 Educational Attainment Answer Date Germain rded Speak language other than Frisian at home Not on file 02/23/2023 Want help with school or training Not on file 02/23/2023 Substance Use Answer Date Recorded Used prescription meds for non-medical reasons N ot on file 02/23/2023 Used illegal drugs past 12 months Not on file 02/23/2023 Comments Unknown Sex and Gender Information Value Date Recorded Sex Assigned at Not on file Legal Sex Female 5:04 PM CDT Gender Identity Not on file Sexual Orientation Not on file documented as of this encounter Miscellaneous Notes * Telephone Encounter - Cat Gonzalez CMA - 03/11/2024 10:31 AM EST Peterson: Requesting refill on Naproxen 500mg to [facility] Should have an appt 05/2024 for RT knee s/p injection 02-23-24 but it is not on there I will add scheduling team to message as well Yue: Can you check on follow up appt for pt? TIVE PROJECT MANAGER documented in this encounter Plan of Treatment Upcoming Encounters Date Type Department Care Team (Late st Contact Info) Description 02/13/2025 9:00 AM EST Infusion [facility] [address] [place] [address] 02/27/2025 8:00 AM EST Infusion [facility] [address] [place] [address] documented as of this encounter Visit Diagnoses Not on filedocumented in this encounter Care Teams Security Rover Relationship Specialty Start Date End Date Hiram Love MD [address] [place] [address] [place] [address] PCP - General Obstetrics and Gynecology 12/13/21 documented as of this encounter
--- OUTSIDE RECORDS SUMMARY | 2024-12-19 12:29 | XMS_ITS | Clinical Summary ---
Author Organization [employer] ([place], [place], [place], [place], [place]) Address [address] [place] [address] Care Team Providers Care Negative Notcher Name Role Phone Hiram Love MD Primary Care Provider [phone] Allergies No known active allergies Medications naproxen (NAPROSYN) 500 MG tabletIndications:P rimary osteoarthritis of right knee Take 1 tablet (500 mg total) by mouth 2 (two) times daily. 60 tablet 2 Active Active Problems Problem Noted Date Diagnosed Date Granulomatosis with polyangiitis 08/12/2024 Iron deficiency anemia [place] to inadequate dietary iron intake 08/12/2024 Encounters Date Type Department Care Team Description 12/05/2024 Travel 10/15/2024 9:00 AM EDT Infusion [facility] [address] [place] [address] ANCA-associated vasculitis (HCC) (Primary Dx) 09/30/2024 9:00 AM EDT Infusion [facility] [address] [place] [address] ANCA-associated vasculitis (HCC) (Primary Dx) 2024 10:00 AM EDT Infusion [facility] [address] [place] [address] Iron deficiency anemia secondary to inadequate dietary iron intake (Primary Dx); Granulomatosis with polyangiitis (HCC) 2024 Travel from Last 3 Months Family History Medical History Relation Name Comments Diabetes Other Relation Name Status Comments Other Social History Tobacco Use Types Packs/Day Years Used Date Smoking Tobacco: Never Smokeless Tobacco: Never Tobacco Cessation:Counseling Given: Not Answered Alcohol Use Standard Drinks/Week Comments Never 0 (1 standard drink = 0.6 oz pur e alcohol) Family and Community Support Answer Jacob e Recorded Help with Day to Day Activities Not on file 02/23/2023 Feeling Lonely or Isolated Not on file 02/23 Educational Attainment Answer Date Germain rded Speak language other than Nepalese at home Not on file 02/23/2023 Want [...] Sign Reading Time Taken Comments Blood Pressure 143/75 10/15/2024 12:20 PM EDT Pulse 82 10/15/2024 12:20 PM EDT Temperature 36.9 C (98.4 F) 10/15/2024 12:20 PM EDT Respiratory Rate 18 10/15/2024 12:20 PM EDT Oxygen Saturation 97% 10/15/2024 12:20 PM EDT Inhaled Oxygen Concentration - - Weight 49.9 kg (110 lb) 09/30/2024 9:07 AM EDT Height 162.6 cm (5' 4 ) 09/30/2024 9:07 AM EDT Body Mass Index 18.88 09/30/2024 9:07 AM EDT Plan of Treatment Upcoming Encounters Date Type Department Care Team (Late st Contact Info) Description 02/13/2025 9:00 AM EST Infusion [facility] [address] [place] [address] 02/27/2025 8:00 AM EST Infusion [facility] [address] [place] [address] Health Maintenance Due Date Last Done Comments CT Colonography 1950 Colonoscopy 1950 Colorectal Cancer Screening 1950 DXA SCAN 1950 FOBT/FIT 1950 Fit-DNA (Cologuard) 1950 Sigmoidoscopy 1950 COVID-19 VACCINE (#1) 09/21/1955 Depression Screening (12+) 1962 Hepatitis C Screening 1968 DTAP/TDAP/TD VACCINES (1 - Tdap) 1969 Pneumococcal 50+ years (1 of 2 - PCV) 1969 Shingles Vaccine (Zoster) (1 of 2) 1969 Breast Cancer Screening 1990 Respiratory Syncytial Virus (RSV) Adult or (1 - Risk 60-74 years 1-dose series) 2010 Falls Risk Screening 02/07/2024 Influenza Vaccine (#1) 2024 Tobacco Cessation Counseling and Screening (12+) 02/2702/28/2024 Procedures Procedure Name Priority Date/Time Associated Diagnosis Comments PERIPHERAL SMEAR PATH REVIEW Routine 12/05/2024 11:39 AM EDT Drug-induced immunodeficiency (HCC) Chronic kidney disease, stage IV (severe) (HCC) ANCA-associated vasculitis (HCC) Chronic kidney disease, unspecified Anemia of chronic renal failure Drug therapy MANUAL DIFFERENTIAL Routine 12/05/2024 1 1:39 AM EDT Drug-induced immunodeficiency (HCC) Chronic kidney disease, stage IV (severe) (HCC) ANCA-associated vasculitis (HCC) Chronic kidney disease, unspecified Anemia of chronic renal failure Drug therapy CBC W/ AUTO DIFF Routine 12/05/2024 11:3 9 AM EDT Drug-induced immunodeficiency (HCC) Chronic kidney disease, stage IV (severe) (HCC) ANCA-associated vasculitis (HCC) Chronic kidney disease, unspecified Anemia of chronic renal failure Drug therapy HEPATIC FUNCTION PANEL Routine 12/05/2024 11:39 AM EDT Drug-induced immunodeficiency (HCC) Chronic kidney disease, stage IV (severe) (HCC) ANCA-associated vasculitis (HCC) Chronic kidney disease, unspecified Anemia of chronic renal failure Drug therapy COMPREHENSIVE METABOLIC PANEL Routine 09/30/2024 9:16 AM EDT ANCA-associated vasculitis (HCC) CBC W/ AUTO DIFF Routine 09/30/2024 9:16 AM EDT ANCA-associated vasculitis (HCC) from Last 3 Months Results * Peripheral Smear Path Review (12/05/2024 11:39 AM EDT) Blood Venipuncture / Unknown 12/05/2024 11:39 AM EDT 12/05/2024 11:41 AM EDT us Miguel Han MD LAB BLOOD ORDERABLES Final Resul t [facility] [address] [place], [place] [address] [phone] * (ABNORMAL) CBC with automated diff (12/05/2024 11:39 AM EDT) Only the most recent of2 resultswithin the time period is included. WBC 2.2(L) 4.8 - 10.8 K/ L 12/05/2024 12:09 PM EDT [facility] RBC 2.92(L) 3.50 - 5.20 M/ L 12/05/2024 12:09 PM EDT [facility] Hemoglobin 9.8(L) 11.7 - 15.8 GM/DL 12/05/2024 12:09 PM EDT [facility] Hematocrit 30.2(L) 35.0 - 47.0 % 12/05/2024 12:09 PM EDT [facility] MCV 103(H) 81 - 101 fL 12/05/2024 12:09 PM EDT [facility] MCH 33.6 27.0 - 34.0 pg 12/05/2024 12:09 PM EDT [facility] MCHC 32.5 32.0 - 36.0 GM/DL 12/05/2024 12:09 PM EDT [facility] RDW 12.9 11.5 - 14.5 % 12/05/2024 12:09 PM EDT [facility] Platelets 218 150 - 400 K/CU MM 12/05/2024 12:09 PM EDT [facility] MPV 9.7 9.4 - 12.4 fL 12/05/2024 12:09 PM EDT [facility] Nucleated Red Blood Cell 0.0 0 - 0.2 % 12/05/2024 12:09 PM EDT [facility] NRBC Absolute <0.01 0 - 0.012 K/ul 12/05/2024 12:09 PM EDT [facility] Blood Venipuncture / Unknown 12/05/2024 11:39 AM EDT 12/05/2024 11:41 AM EDT Narrative [facility] - 12/05/2024 12:09 PM EDT When CBC w/ Auto Diff is ordered the lab will add a Manual Differential as a quality check at no additional charge if: Lymphocytes greater than seventy five percent with normal or increased WBC Monocytes greater than Fifteen percent Basophil greater than four percent Bands >10% or several immature myeloids are seen on scan Blast? Flag noted Atypical Lymph flag noted us Miguel Han MD LAB BLOOD ORDERABLES Final Resul t [facility] [address] [place] [address] * (ABNORMAL) Manual Differential (12/05/2024 11:39 AM EDT) Total Counted 100 12/05/2024 12:09 PM EDT [facility] % Neutros (manual) 44 15 - 67 % 12/05/2024 12:09 PM EDT [facility] % Bands (manual) 2 2 - 21 % 12/05/2024 12:09 PM EDT [facility] % Lymphs (manual) 23 10 - 50 % 12/05/2024 12:09 PM EDT [facility] % Monos (manual) 27(H) 2 - 10 % 12/05/2024 12:09 PM EDT [facility] % Eos (manual) 4 0 - 7 % 12/05/2024 12:09 PM EDT [facility] Platelet Estimate Adequate Adequate 12/05/2024 12:09 PM EDT [facility] # Neutrophils (manual) 1.01 K/ L 12/05/2024 12:09 PM EDT [facility] Blood Venipuncture / Unknown 12/05/2024 11:39 AM EDT 12/05/2024 11:41 AM EDT us Miguel Han MD LAB BLOOD ORDERABLES Final Resul t [facility] [address] [place], [place] [address] [phone] * (ABNORMAL) Hepatic function panel (12/05/2024 11:39 AM EDT) Protein, Total 6.2(L) 6.4 - 8.2 gm/dL 12/05/2024 12:17 PM EDT [facility] Albumin 3.4 3.4 - 5.0 g/dL 12/05/2024 12:17 PM EDT [facility] Total Bilirubin 0.4 0.2 - 1.0 mg/dL 12/05/2024 12:17 PM EDT [facility] Bilirubin, Direct 0.1 0.1 - 0.2 mg/dL 12/05/2024 12:17 PM EDT [facility] Alkaline Phosphatase 91 46 - 116 U/L 12/05/2024 12:17 PM EDT [facility] Globulin 2.8 g/dL 12/05/2024 12:17 PM EDT [facility] A/G Ratio 1.2 12/05/2024 12:17 PM EDT [facility] AST 20 15 - 37 U/L 12/05/2024 12:17 PM EDT [facility] Comment:[employer] has become aware of sulfasalazine and sulfapyridine drug interference in the assays ALT, AST, T4, CKMB, glucose, and ammonia. The probability of misinterpretation of results for the assays is remote and would be limited to scenarios where a patient has taken the drug and had a blood sample drawn before clearance of the drug to a level that does not interfere with laboratory testing. Venipuncture should occur prior to administration of the drug. ALT 16 12 - 78 U/L 12/05/2024 12:17 PM EDT [facility] Comment:[employer] has become aware of sulfasalazine and sulfapyridine drug interference in the assays ALT, AST, T4, CKMB, glucose, and ammonia. The probability of misinterpretation of results for the assays is remote and would be limited to scenarios where a patient has taken the drug and had a blood sample drawn before clearance of the drug to a level that does not interfere with laboratory testing. Venipuncture should occur prior to administration of the drug. Blood Venipuncture / Unknown 12/05/2024 11:39 AM EDT 12/05/2024 11:41 AM EDT us Miguel Han MD LAB BLOOD ORDERABLES Final Resul t [facility] [address] [place] [address] * (ABNORMAL) Comprehensive metabolic panel (09/30/2024 9:16 AM EDT) Sodium 141 136 - 145 meq/L 09/30/2024 9:45 AM EDT [facility] Potassium 4.3 3.5 - 5.1 meq/L 09/30/2024 9:45 AM EDT [facility] Chloride 107 98 - 107 meq/L 09/30/2024 9:45 AM EDT [facility] CO2 29 21 - 32 meq/L 09/30/2024 9:45 AM EDT [facility] Calcium 8.6 8.5 - 10.1 mg/dL 09/30/2024 9:45 AM EDT [facility] Glucose 96 74 - 100 mg/dL [facility]24 [facility] BUN 21(H) 7 - 18 mg/dL 09/30/2024 9:45 AM [facility] Creatinine 1.75(H) 0.55 - 1.10 mg/dL 09/30/2024 9:45 AM [facility] BUN/Creatinine 12 09/30/2024 9:45 AM [facility] Albumin 2.9(L) 3.4 - 5.0 g/dL 09/30/2024 9:45 AM [facility] Alkaline Phosphatase 98 46 - 116 U/L 09/30/2024 9:45 AM [facility] ALT 14 12 - 78 U/L 09/30/2024 9:45 AM [facility] AST 21 15 - 37 U/L 09/30/2024 9:45 AM [facility] Total Bilirubin 0.3 0.2 - 1.0 mg/dL 09/30/2024 9:45 AM [facility] Protein, Total 5.5(L) 6.4 - 8.2 gm/dL 09/30/2024 9:45 AM [facility] Anion Gap 9(L) 11 - 22 09/30/2024 9:45 AM [facility] A/G Ratio 1.1 09/30/2024 9:45 AM [facility] Globulin 2.6 g/dL 09/30/2024 9:45 AM [facility] Osmolality Calc 284.1 mOsm/kg 9:45 AM [facility] eGFR (mL/min/1.73m2) 30(L) >=60 mL/min/1.7 3m2 09/30/2024 9:45 AM [facility] Comment:ESTIMATED GFR IS NOT ACCURATE CREATININE CLEARANCE IN PREDICTING GLOMERULAR FILTRATION RATE. ESTIMATED GFR IS NOT APPLICABLE FOR DIALYSIS PATIENTS. Blood ENTIRE LEFT UPPER ARM / Unknown Venipuncture / Unknown 09/30/2024 9:16 AM EDT 09/30/2024 9:22 AM EDT Levar Fink Jr., MD LAB BLOOD ORDERABLE S Final Result [facility] [address] [place] [address], [facility] [phone] from Last 3 Months Insurance BLUE CROSS/BLUE SHIELD Care Teams Negative Notcher Relationship Specialty Start Date End Date Hiram Love MD [address] [place] [address] [place] [address] PCP - General Obstetrics and Gynecology 12/13/21
--- OUTSIDE RECORDS SUMMARY | 2024-12-19 12:29 | XMS_ITS | Encounter Summary ---
Author Organization Healthcare Address [address] [place] [address] Care Team Providers Care Operations Program Manager Name Role Phone Hiram Love MD Primary Care Provider [phone] Encounter Details Date Type Department Care Team (Latest Contact Info) Description 12/12/2024 Travel Social History Tobacco Use Types Packs/Day Years [...] and Family Not on file 04/22/2024 Attends Rastafari Services Not on file 04/22 Active Member [...] any time in the past 12 m [facility], were you homeless or living in a fpc (including now)? No 04/22/2024 AUDIT-C Answer Date [...] on file documented as of this encounter Plan of Treatment Upcoming Encounters Date Type Department Care Team (Late st Contact Info) Description 03/12/2025 9:00 AM EST Office Visit [facility] [address], [address] [place] [phone] Jesús Rowland, MBBS [address] [place] [address] 03/13/2025 1:40 PM EST Office Visit Professional [employer] [place] [facility] [address], [address] [place] [address] Miguel Han MD [address] [place] [address] documented as of this encounter Visit Diagnoses Not on filedocumented in this encounter Additional Health Concerns Assessment Noted Time PHQ-9 Depression Total Score: 3 06/28/19 25 8:16 AM EDT A fall risk assessment has been complete d for the patient 12/12/2024 3:17 PM EST A Body Mass Index follow-up plan has been documented for the patient 12/13/2024 10:05 AM EST documented as of this encounter Care Teams Operations Program Manager Relationship Specialty Start Date End Date Hiram Love MD [address] [facility] [place] [address] PCP - General 04/19/24 documented as of this encounter
--- OUTSIDE RECORDS SUMMARY | 2024-12-19 12:29 | XMS_ITS | Encounter Summary ---
Author Organization [employer] ([place], [place], [place], [place], [place]) Address [address] [place] [address] Care Team Providers Care Director Life Insurance Name Role Phone Hiram Love MD Primary Care Provider [phone] Encounter Details Date Type Department Care Team (Latest Contact Info) Description 12/05/2024 Travel Social History Tobacco Use Types Packs/Day [...] Date Germain rded Speak language other than Croatian at home Not on file 02/23/2023 Want [...] Description 02/13/2025 9:00 AM EST Infusion [facility] [address] [place] [address] 02/27/2025 8:00 AM EST Infusion [facility] [address] [place] [address] documented as of this encounter Visit Diagnoses Not on filedocumented in this encounter Care Teams Director Life Insurance Relationship Specialty Start Date End Date Hiram Love MD [address] [place] [address] [place] [address] PCP - General Obstetrics and Gynecology 12/13/21 documented as of this encounter
--- OUTSIDE RECORDS SUMMARY | 2024-12-19 12:29 | XMS_ITS | Encounter Summary ---
Author Organization Healthcare Address [address] [place] [address] Care Team Providers Care Pipe Connector Name Role Phone Hiram Love MD Primary Care Provider [phone] Encounter Details Date Type Department Care Team (Latest Contact Info) Description 12/11/2024 Travel Social History Tobacco Use Types Packs/Day [...] and Family Not on file 04/22/2024 Attends Orthodox Services Not on file 04/22 Active Member [...] any time in the past 12 m [facility], were you homeless or living in a long-term (including now)? No 04/22/2024 AUDIT-C Answer Date [...] Description 03/12/2025 9:00 AM EST Office Visit [facility] [address], [address] [place] [phone] Jesús Rowland, MBBS [address] [place] [address] 03/13/2025 1:40 PM EST Office Visit Professional [employer] [place] [facility] Metabolism [address], [address] [place] [address] Miguel Han MD [address] [place] [address] documented as of this encounter [...] documented as of this encounter Care Teams Pipe Connector Relationship Specialty Start Date End Date Hiram Love MD [address] [facility] [place] [address] PCP - General 04/19/24 documented as of this encounter
--- OUTSIDE RECORDS SUMMARY | 2024-12-19 12:29 | XMS_ITS | Referral Summary ---
Author Organization [employer] ([place], [place], [place], [place], [place]) Address [address] [place] [address] Care Team Providers Care Adaptive Physical Education Teacher Name Role Phone Hiram Love MD Primary Care Provider [phone] Encounters Date Type Department Care Team Description 12/05/2024 Travel 10/15/2024 9:00 AM EDT Infusion [facility] [address] [place] [address] ANCA-associated vasculitis (HCC) (Primary Dx) 09/30/2024 9:00 AM EDT Infusion [facility] [address] [place] [address] ANCA-associated vasculitis (HCC) (Primary Dx) 2024 Travel 2024 10:00 AM EDT Infusion [facility] [address] [place] [address] 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 60 tablet 2 5 Active Active Problems Problem Noted Date Diagnosed Date Granulomatosis with polyangiitis 08/12/2024 Iron deficiency anemia secon delilah to inadequate dietary iron intake 08/12/2024 Social History Tobacco Use Types Packs/Day Years [...] Date Germain rded Speak language other than Monegasque at home Not on file 02/23/2023 Want [...] Info) Description 02/13/2025 9:00 AM EST Infusion [facility] [address] [place] [address] 02/27/2025 8:00 AM EST Infusion [facility] [address] [place] [address] Procedures Procedure Name Priority Date/Time Associated Diagnosis [...] MD LAB BLOOD ORDERABLES Final Resul t [facility] [address] [place] [id number] [phone] * (ABNORMAL) CBC with automated diff (12/05/2024 11:39 AM EDT) Only the most recent of2 resultswithin the time period is included. WBC 2.2(L) 4.8 - 10.8 K/ L 12/05/2024 12:09 PM EDT [facility] RBC 2.92(L) 3.50 - 5.20 M/ L 12/05/2024 12:09 PM EDT [facility] Hemoglobin 9.8(L) 11.7 - 15.8 GM/DL 12/05/2024 12:09 PM EDT [facility] Hematocrit 30.2(L) 35.0 - 47.0 % 12/05/2024 12:09 PM EDT [facility] MCV 103(H) 81 - 101 fL 12/05/2024 12:09 PM EDT [facility] MCH 33.6 27.0 - 34.0 pg 12/05/2024 12:09 PM EDT [facility] MCHC 32.5 32.0 - 36.0 GM/DL 12/05/2024 12:09 PM EDT [facility] RDW 12.9 11.5 - 14.5 % 12/05/2024 12:09 PM EDT [facility] Platelets 218 150 - 400 K/CU MM 12/05/2024 12:09 PM [facility] MPV 9.7 9.4 - 12.4 fL 12/05/2024 12:09 PM T [facility] Nucleated Red Blood Cell 0.0 0 - 0.2 % 12/05/2024 12:09 PM [facility] NRBC Absolute <0.01 0 - 0.012 K/ul 12/05/2024 12:09 PM T [facility] Blood Venipuncture / Unknown 12/05/2024 11:39 AM EDT 12/05/2024 11:41 AM EDT [facility] - 12/05/2024 12:09 PM EDT When [...] ORDERABLES Final Resul t Performing Organization Address [facility] Co de Phone Number [facility] [address] [place] [address] * (ABNORMAL) Manual Differential (12/05/2024 11:39 AM EDT) Total Counted 100 12/05/2024 12:09 PM EDT [facility] % Neutros (manual) 44 15 - 67 % 12/05/2024 12:09 PM EDT [facility] % Bands (manual) 2 2 - 21 % 12/05/2024 12:09 PM EDT [facility] % Lymphs (manual) 23 10 - 50 % 12/05/2024 12:09 PM EDT [facility] % Monos (manual) 27(H) 2 - 10 % 12/05/2024 12:09 PM EDT [facility] % Eos (manual) 4 0 - 7 % 12/05/2024 12:09 PM EDT [facility] Platelet Estimate Adequate Adequate 12/05/2024 12:09 PM EDT [facility] # Neutrophils (manual) 1.01 K/ L 12/05/2024 12:09 PM EDT [facility] Blood Venipuncture / Unknown 12/05/2024 11:39 AM EDT 12/05/2024 11:41 AM EDT us Miguel Han MD LAB BLOOD ORDERABLES Final Resul t Performing Organization Address City/[facility]/ZIP Co de Phone Number [facility] [address] [place] [address] * (ABNORMAL) Hepatic function panel (12/05/2024 11:39 AM EDT) Protein, Total 6.2(L) 6.4 - 8.2 gm/dL 12/05/2024 12:17 PM EDT [facility] Albumin 3.4 3.4 - 5.0 g/dL 12/05/2024 12:17 PM EDT [facility] Total Bilirubin 0.4 0.2 - 1.0 mg/dL 12/05/2024 12:17 PM EDT [facility] Bilirubin, Direct 0.1 0.1 - 0.2 mg/dL 12/05/2024 12:17 PM EDT [facility] Alkaline Phosphatase 91 46 - 116 U/L 12/05/2024 12:17 PM EDT [facility] Globulin 2.8 g/dL 12/05/2024 12:17 PM EDT [facility] A/G Ratio 1.2 12/05/2024 12:17 PM T [facility] AST 20 15 - 37 U/L 12/05/2024 12:17 PM EDT [facility] Comment:[employer] has become aware of sulfasalazine and sulfapyridine [...] - 78 U/L 12/05/2024 12:17 PM EDT [facility] Comment:[employer] has become aware of sulfasalazine and sulfapyridine [...] MD LAB BLOOD ORDERABLES Final Resul t [facility] [address] [phone] * (ABNORMAL) Comprehensive metabolic panel (09/30/2024 9:16 AM EDT) Sodium 141 136 - 145 meq/L 09/30/2024 9:45 AM EDT [facility] Potassium 4.3 3.5 - 5.1 meq/L 09/30/2024 9:45 AM EDT [facility] Chloride 107 98 - 107 meq/L 09/30/2024 9:45 AM EDT [facility] CO2 29 21 - 32 meq/L 09/30/2024 9:45 AM EDT [facility] Calcium 8.6 8.5 - 10.1 mg/dL 09/30/2024 9:45 AM EDT [facility] Glucose 96 74 - 100 mg/dL 09/30/2024 9:45 AM EDT [facility] BUN 21(H) 7 - 18 mg/dL 09/30/2024 9:45 AM EDT [facility] Creatinine 1.75(H) 0.55 - 1.10 mg/dL 09/30/2024 9:45 AM EDT [facility] BUN/Creatinine 12 09/30/2024 9:45 AM EDT [facility] Albumin 2.9(L) 3.4 - 5.0 g/dL 09/30/2024 9:45 AM EDT [facility] Alkaline Phosphatase 98 46 - 116 U/L 09/30/2024 9:45 AM EDT [facility] ALT 14 12 - 78 U/L 09/30/2024 9:45 AM EDT [facility] AST 21 15 - 37 U/L 09/30/2024 9:45 AM EDT [facility] Total Bilirubin 0.3 0.2 - 1.0 mg/dL 09/30/2024 9:45 AM EDT [facility] Protein, Total 5.5(L) 6.4 - 8.2 gm/dL 09/30/2024 9:45 AM EDT [facility] Anion Gap 9(L) 11 - 22 09/30/2024 9:45 AM EDT [facility] A/G Ratio 1.1 09/30/2024 9:45 AM EDT [facility] Globulin 2.6 g/dL 09/30/2024 9:45 AM EDT [facility] Osmolality Calc 284.1 mOsm/kg 9:45 AM EDT [facility] eGFR (mL/min/1.73m2) 30(L) >=60 mL/min/1.7 3m2 09/30/2024 9:45 AM EDT [facility] Comment:ESTIMATED GFR IS NOT ACCURATE CREATININE CLEARANCE IN PREDICTING GLOMERULAR FILTRATION RATE. ESTIMATED GFR IS NOT APPLICABLE FOR DIALYSIS PATIENTS. Blood ENTIRE LEFT UPPER ARM / Unknown Venipuncture / Unknown 09/30/2024 9:16 AM EDT 09/30/2024 9:22 AM EDT us Levar Fink Jr., MD LAB BLOOD ORDERABLE S Final Result [facility] [address] [place] [address], [facility] [phone] from Last 3 Months Insurance BLUE CROSS/BLUE SHIELD Care Teams Adaptive Physical Education Teacher Relationship Specialty Start Date End Date Hiram Love MD [address] [place] [address] [place] [address] PCP - General Obstetrics and Gynecology 12/13/21
--- OUTSIDE RECORDS SUMMARY | 2024-12-19 12:29 | XMS_ITS | Encounter Summary ---
Author Organization Healthcare Address [address] [place] [address] Care Team Providers Care Card Setter Name Role Phone Hiram Love MD Primary Care Provider [phone] Encounter Details Date Type Department Care Team (Late st Contact Info) Description 12/19/2024 Orders Only [facility] [address], [address] [place] [address] Genoveva Palacios, PharmD [address] [place] [address] ANCA-associated vasculitis (Primary Dx); CKD stage 3b, GFR 30-44 ml/min (CMS/[facility]ER[facility]) Social History Tobacco Use Types Packs/Day Years [...] and Family Not on file 04/22/2024 Attends Baptism Services Not on file 04/22 Active Member [...] any time in the past 12 m [facility], were you homeless or living in a intermediate (including now)? No 04/22/2024 AUDIT-C Answer Date [...] In the past 12 months has e [employer], gas, oil, or water [employer] threatened to shut off services in your home? No 04/22/2024 Comments Unknown Sex and Gender Information Value Date Recorded Sex Assigned at Not on file Legal Sex Female 6:34 PM EDT Gender Identity Not on file Sexual Orientation Not on file documented as of this encounter Miscellaneous Notes * Progress Notes - Genoveva Palacios, PharmD - 12/19/2024 9:28 AM EST Ordered HFP to be drawn with next office visit Mar 2025 for [employer] monitoring. Genoveva Palacios, PharmD, BCACP Clinical Pharmacist Nephrology Clinic documented in this encounter Plan of Treatment Upcoming Encounters Date Type Department Care Team (Late st Contact Info) Description 03/12/2025 9:00 AM EST Office Visit [facility] Medicine Specialties [address] [place] [phone] Jesús Rowland, LINDSAY [address] [phone] 03/13/2025 1:40 PM EST Office Visit Professional [facility] Nephrology, Bone & Mineral Metabolism [address] [facility] [address], [address] [place] [address] Miguel Han MD [address] [facility] [facility] [address] [place] [address] Scheduled Orders Name Type Priority Associated Diagnoses Orde r Schedule Hepatic function panel Lab Routine ANCA-associated vasculitis CKD stage 3b, GFR 30-44 ml/min (CMS/HCC) Expected: 03/12/2025 (Approximate), Expires: 06/22/2026 documented as of this encounter Visit Diagnoses Diagnosis ANCA-associated vasculitis- Primary Other specified disorders of arteries and arterioles CKD stage 3b, GFR 30-44 ml/min (CMS/HCC) documented in this encounter Additional Health Concerns Assessment Noted Time PHQ-9 Depression Total Score: 3 06/28/19 8:16 AM EDT A fall risk assessment has been complete d for the patient 12/12/2024 3:17 PM EST A Body Mass Index follow-up plan has been documented for the patient 12/13/2024 10:05 AM EST documented as of this encounter Care Teams Card Setter Relationship Specialty Start Date End Date Hiram Love MD [address] [place] [address] PCP - General 04/19/24 documented as of this encounter
--- NOTE | 2024-12-19 12:32 | XR_ITS ---
FINAL REPORT CLINICAL HISTORY: right knee pain FINDINGS: RIGHT KNEE 3 views of the right knee were obtained. There is no acute fracture or dislocation. There is advanced medial compartment joint space narrowing with subchondral sclerosis. There is lateral subluxation of the proximal tibia in relation to the distal femur. Soft tissues are unremarkable. IMPRESSION: Degenerative changes without acute bony abnormality. Reviewed, Interpreted and Dictated by Carlos Ruelas MD Transcribed by Lamar Mina Authenticated and [facility]
== END 2024-12-19 23:59 | disposition home or self-care (01) ==
LOC: RAD 12:27
PROVIDERS: PCP Nurse Practitioner Family; Visit Provider Orthopaedic Surgery
DX: M17.11 Unilateral primary osteoarthritis, right knee (principal)
CPT/HCPCS: 73562